=== PATIENT | male | born 1990 | race Caucasian/White ===

== ENCOUNTER → 2024-02-24 06:49 | Outpatient (REF) | payer OTHER, SELFPAY | LOC: RAD 06:49 | PROVIDERS: ATTENDING PHYSICIAN Nurse Practitioner Family | DX: S81.801D Unspecified open wound, right lower leg, subsequent encounter (principal) | CPT/HCPCS: 93925 ==

== ENCOUNTER → 2024-03-06 13:54 | Outpatient (REF) | payer OTHER, SELFPAY | LOC: HWEVLT 13:54 | PROVIDERS: ATTENDING PHYSICIAN Radiology Vascular & Interventional Radiology | DX: I83.893 Varicose veins of bilateral lower extremities with other complications (principal) | CPT/HCPCS: 93970 ==

== ENCOUNTER → 2024-12-05 13:33 | Outpatient (REF) | payer OTHER, SELFPAY | LOC: RAD 13:33 | PROVIDERS: ATTENDING PHYSICIAN Nurse Practitioner Family | DX: S81.801D Unspecified open wound, right lower leg, subsequent encounter (principal) | CPT/HCPCS: 73590 ==

== ENCOUNTER → 2025-01-15 07:51 | Outpatient (REF) | payer OTHER, SELFPAY | LOC: WOUND 07:51 | PROVIDERS: ATTENDING PHYSICIAN Surgery; FAMILY PHYSICIAN Nurse Practitioner Family | DX: I87.311 Chronic venous hypertension (idiopathic) with ulcer of right lower extremity (principal); L97.212 Non-pressure chronic ulcer of right calf with fat layer exposed; F90.1 Attention-deficit hyperactivity disorder, predominantly hyperactive type; F42.2 Mixed obsessional thoughts and acts | CPT/HCPCS: 11042; 99203 ==

== ENCOUNTER → 2025-01-25 10:44 | Outpatient (REF) | payer OTHER, SELFPAY | LOC: WOUND 10:44 | PROVIDERS: ATTENDING PHYSICIAN Surgery; FAMILY PHYSICIAN Nurse Practitioner Family | DX: I87.311 Chronic venous hypertension (idiopathic) with ulcer of right lower extremity (principal); L97.212 Non-pressure chronic ulcer of right calf with fat layer exposed | CPT/HCPCS: 11042 ==

== ENCOUNTER → 2025-02-01 13:43 | Outpatient (REF) | payer OTHER, SELFPAY | LOC: WOUND 13:43 | PROVIDERS: ATTENDING PHYSICIAN Surgery; FAMILY PHYSICIAN Nurse Practitioner Family | DX: I87.311 Chronic venous hypertension (idiopathic) with ulcer of right lower extremity (principal); L97.212 Non-pressure chronic ulcer of right calf with fat layer exposed; F90.1 Attention-deficit hyperactivity disorder, predominantly hyperactive type; F42.2 Mixed obsessional thoughts and acts | CPT/HCPCS: 11042 ==

== ENCOUNTER → 2025-02-07 13:40 | Outpatient (REF) | payer OTHER, SELFPAY | LOC: WOUND 13:40 | PROVIDERS: ATTENDING PHYSICIAN Surgery | DX: I87.311 Chronic venous hypertension (idiopathic) with ulcer of right lower extremity (principal); L97.212 Non-pressure chronic ulcer of right calf with fat layer exposed; F90.1 Attention-deficit hyperactivity disorder, predominantly hyperactive type; F42.2 Mixed obsessional thoughts and acts | CPT/HCPCS: 11042 ==

== ENCOUNTER → 2025-02-15 14:11 | Outpatient (REF) | payer OTHER, SELFPAY | LOC: WOUND 14:11 | PROVIDERS: ATTENDING PHYSICIAN Surgery; FAMILY PHYSICIAN Nurse Practitioner Family | DX: I87.311 Chronic venous hypertension (idiopathic) with ulcer of right lower extremity (principal); L97.212 Non-pressure chronic ulcer of right calf with fat layer exposed; F90.1 Attention-deficit hyperactivity disorder, predominantly hyperactive type; F42.2 Mixed obsessional thoughts and acts | CPT/HCPCS: 11042 ==

== ENCOUNTER → 2025-02-22 12:28 | Outpatient (REF) | payer OTHER, SELFPAY | LOC: WOUND 12:28 | PROVIDERS: ATTENDING PHYSICIAN Surgery; FAMILY PHYSICIAN Nurse Practitioner Family | DX: I87.311 Chronic venous hypertension (idiopathic) with ulcer of right lower extremity (principal); L97.212 Non-pressure chronic ulcer of right calf with fat layer exposed; I87.2 Venous insufficiency (chronic) (peripheral); F90.1 Attention-deficit hyperactivity disorder, predominantly hyperactive type; F42.2 Mixed obsessional thoughts and acts | CPT/HCPCS: 11042 ==

== ENCOUNTER → 2025-03-08 10:15 | Outpatient (REF) | payer OTHER, SELFPAY | LOC: WOUND 10:15 | PROVIDERS: ATTENDING PHYSICIAN Surgery; FAMILY PHYSICIAN Nurse Practitioner Family | DX: I87.311 Chronic venous hypertension (idiopathic) with ulcer of right lower extremity (principal); L97.212 Non-pressure chronic ulcer of right calf with fat layer exposed; I87.2 Venous insufficiency (chronic) (peripheral); F90.1 Attention-deficit hyperactivity disorder, predominantly hyperactive type; F42.2 Mixed obsessional thoughts and acts | CPT/HCPCS: 11042 ==

== ENCOUNTER 2025-03-28 11:19 | Outpatient (REF) | payer OTHER, SELFPAY | END 2025-03-28 23:59 | disposition home or self-care (01) | LOC: WOUND 11:19 | PROVIDERS: ATTENDING PHYSICIAN Surgery; FAMILY PHYSICIAN Nurse Practitioner Family | DX: I87.311 Chronic venous hypertension (idiopathic) with ulcer of right lower extremity (principal); L97.212 Non-pressure chronic ulcer of right calf with fat layer exposed; I87.2 Venous insufficiency (chronic) (peripheral); F90.1 Attention-deficit hyperactivity disorder, predominantly hyperactive type; F42.2 Mixed obsessional thoughts and acts | CPT/HCPCS: 11042 ==

== ENCOUNTER → 2025-04-03 12:51 | Outpatient (REF) | payer OTHER, SELFPAY | LOC: RAD 12:51 | PROVIDERS: ATTENDING PHYSICIAN Surgery; FAMILY PHYSICIAN Nurse Practitioner Family | DX: I87.311 Chronic venous hypertension (idiopathic) with ulcer of right lower extremity (principal); L97.212 Non-pressure chronic ulcer of right calf with fat layer exposed; I87.2 Venous insufficiency (chronic) (peripheral) | CPT/HCPCS: 93971 ==